=== PATIENT | female | born 1975 | race Caucasian/White ===

== ENCOUNTER 2018-06-13 10:02 | Day surgery (SDC) | payer MEDICAID ==
[~2018-06-13 10:02] MED LIST: EPHEDrine SULFATE 50 MG/5 ML SYG
[2018-06-13] MEDS ORDERED: CEFAZOLIN 1 GM INJ (13:14)
[2018-06-13] MEDS ORDERED: FENTAnyl 50 MCG/ML VIAL (13:14)
[2018-06-13] MEDS ORDERED: PROPOFOL 20 ML (13:14)
[2018-06-13] MEDS ORDERED: MIDAZOLAM 1 MG/ML 2 ML INJ (13:14)
[2018-06-13] MEDS ORDERED: FENTAnyl 50 MCG/ML VIAL IV ×3 (13:30)
[2018-06-13] MEDS ORDERED: ONDANSETRON 4 MG INJ IV (13:30)
[2018-06-13] MEDS ORDERED: HYDROmorphONE 1 MG/5 ML IV SYRINGE IV ×3 (13:30)
[2018-06-13] MEDS ORDERED: OXYCODONE/ACETAMINOPHEN (5/325) TAB PO (13:30)
[2018-06-13] MEDS ORDERED: EPHEDrine SULFATE 50 MG/5 ML SYG IV (13:30)
[2018-06-13] MEDS ORDERED: LABETALOL HCL 20MG INJ IV (13:30)
[2018-06-13] MEDS ORDERED: METOCLOPRAMIDE 10 MG INJ IV (13:30)
[2018-06-13] MEDS ORDERED: ONDANSETRON 4 MG INJ (13:57)
[2018-06-13] MEDS ORDERED: DEXAMETHASONE 4 MG/ML 1 ML INJ (13:57)
[2018-06-13] MEDS ORDERED: KETOROLAC 30 MG INJ (13:57)
[2018-06-13] MEDS ORDERED: METOCLOPRAMIDE 10 MG INJ (13:57)
== END 2018-06-13 15:55 | disposition home or self-care (01) ==
LOC: SDS 10:02
DX: N60.11 Diffuse cystic mastopathy of right breast (principal)
CPT/HCPCS: 19120; 84703; 88307; 88312